=== PATIENT | male | born 1940 | race American Indian/Alaskan Native ===

== ENCOUNTER 2016-12-05 16:16 | Inpatient (IN) | payer MEDICARE, OTHER ==
[~2016-12-05] VITALS: Ht 174 cm; Wt 63.3 kg
[~2016-12-05 16:16] MED LIST: ERGO500017 PO; FINA5TAB4 PO; INSU100V5 SQ-INSULIN; METR500T PO; SEVE800T7 PO; TAMS-11 PO
[2016-12-05] MEDS ORDERED: SODIUM CHLORIDE 0.9% 1,000ML IVBOLUS ONE ×2 (17:00→20:30)
[2016-12-05 17:12] LABS: HEMATOCRIT 33.2 % (39.2-51.8); HEMOGLOBIN 10.8 g/dL (13.7-18.0); WHITE BLOOD COUNT 11.1 x10^3/uL (3.4-10)
[2016-12-05 17:23] LABS: ASPARTATE AMINO TRANSFERASE 60 U/L (15-37); BLOOD UREA NITROGEN 63 mg/dL (7-18)
[2016-12-05] MEDS ORDERED: ONDANSETRON 2MG/ML, 2ML ONE (17:29)
[2016-12-05] MEDS ORDERED: MORPHINE SULFATE 4 MG/ML, 1ML ONE (17:29)
[2016-12-05] MEDS ORDERED: ONDANSETRON 2MG/ML, 2ML IVPush ONE (17:30)
[2016-12-05] MEDS ORDERED: MORPHINE SULFATE 4 MG/ML, 1ML IVPush PRN (17:30)
[2016-12-05] MEDS ORDERED: ACETAMINOPHEN 500 MG TABLET ONE (20:15)
[2016-12-05] MEDS ORDERED: CEFTRIAXONE PMX 1GM/50ML 50 ML ONE (20:15)
[2016-12-05] MEDS ORDERED: ACETAMINOPHEN 500 MG TABLET PO ONE (20:30)
[2016-12-05] MEDS ORDERED: CEFTRIAXONE PMX 1GM/50ML 50 ML IVPB ONE (20:30)
[2016-12-05] MEDS ORDERED: ONDANSETRON ODT 4 MG PO PRN (21:30)
[2016-12-05] MEDS ORDERED: TEMAZEPAM 15 MG CAPSULE PO PRN (21:30)
[2016-12-05] MEDS ORDERED: hydrALAzine 20 MG/ML, 1ML IVPush PRN (21:30)
[2016-12-05 22:20] VITALS: BP 138/72
[2016-12-05 22:59] VITALS: BP 138/72
[2016-12-05] MEDS: HEPARIN 5,000 UNITS/ML, 1ML SQ SCH (23:30)
[2016-12-06] MEDS ORDERED: DEXTROSE 50%, 50ML SYRINGE IVPush PRN (01:00)
[2016-12-06] MEDS ORDERED: DEXTROSE 4 GM TAB.CHEW PO PRN (01:00)
[2016-12-06] MEDS ORDERED: GLUCAGON 1 MG IM PRN (01:00)
[2016-12-06 02:26] VITALS: BP 152/84
[2016-12-06 06:22] LABS: HEMATOCRIT 28.9 % (39.2-51.8); HEMOGLOBIN 9.5 g/dL (13.7-18.0); WHITE BLOOD COUNT 7.8 x10^3/uL (3.4-10)
[2016-12-06] MEDS: HEPARIN 5,000 UNITS/ML, 1ML SQ SCH ×3 (06:30→20:17)
[2016-12-06] MEDS: HYDROmorphone 2 MG/ML, 1ML IVPush PRN ×3 (06:40→20:17)
[2016-12-06 06:51] LABS: ASPARTATE AMINO TRANSFERASE 39 U/L (15-37); BLOOD UREA NITROGEN 72 mg/dL (7-18)
[2016-12-06] MEDS: INSULIN ASPART 100 UNITS/ML, PEN SQ-INSULIN SCH ×4 (07:00→20:16)
[2016-12-06 07:04] VITALS: BP 146/78
[2016-12-06] MEDS: SODIUM CHLORIDE FLUSH 10ML SYR IVF SCH ×2 (09:00→20:17)
[2016-12-06 09:37] VITALS: BP 119/79
[2016-12-06] MEDS: CEFTRIAXONE PMX 1GM/50ML 50 ML IV SCH ×2 (09:51→20:15)
[2016-12-06 13:47] VITALS: BP 117/77
[2016-12-06 20:00] VITALS: BP 123/82
[2016-12-06] MEDS: LACTOBACILLUS CHEW TABLET PO SCH (20:17)
[2016-12-07 01:56] VITALS: BP 150/87
[2016-12-07 05:07] LABS: HEMATOCRIT 27.6 % (39.2-51.8); HEMOGLOBIN 9.1 g/dL (13.7-18.0); WHITE BLOOD COUNT 6.8 x10^3/uL (3.4-10)
[2016-12-07 05:15] LABS: ASPARTATE AMINO TRANSFERASE 24 U/L (15-37); BLOOD UREA NITROGEN 88 mg/dL (7-18)
[2016-12-07] MEDS: HEPARIN 5,000 UNITS/ML, 1ML SQ SCH ×3 (05:24→21:53)
[2016-12-07] MEDS: DOCUSATE 100 MG CAPSULE PO PRN ×2 (05:24→21:53)
[2016-12-07 07:43] VITALS: BP 118/79
[2016-12-07] MEDS: LACTOBACILLUS CHEW TABLET PO SCH ×2 (07:54→21:53)
[2016-12-07] MEDS: INSULIN ASPART 100 UNITS/ML, PEN SQ-INSULIN SCH ×4 (07:54→21:53)
[2016-12-07] MEDS: SODIUM CHLORIDE FLUSH 10ML SYR IVF SCH ×2 (09:00→21:53)
[2016-12-07] MEDS ORDERED: ARANESP 60 MCG/ML **ESRD SQ SCH (10:30)
[2016-12-07] MEDS: CEFTRIAXONE PMX 1GM/50ML 50 ML IV SCH ×2 (12:15→21:54)
[2016-12-07 16:11] VITALS: BP 119/71
[2016-12-07 20:00] VITALS: BP 120/70
[2016-12-08 01:49] VITALS: BP 132/72
[2016-12-08] MEDS: HEPARIN 5,000 UNITS/ML, 1ML SQ SCH ×3 (05:06→22:20)
[2016-12-08 05:22] LABS: HEMATOCRIT 26.3 % (39.2-51.8); HEMOGLOBIN 8.9 g/dL (13.7-18.0); WHITE BLOOD COUNT 5.6 x10^3/uL (3.4-10)
[2016-12-08 05:38] LABS: BLOOD UREA NITROGEN 54 mg/dL (7-18)
[2016-12-08] MEDS: INSULIN ASPART 100 UNITS/ML, PEN SQ-INSULIN SCH ×4 (07:00→22:20)
[2016-12-08 08:45] VITALS: BP 115/67
[2016-12-08] MEDS: SODIUM CHLORIDE FLUSH 10ML SYR IVF SCH ×2 (09:00→22:18)
[2016-12-08 09:19] LABS: HEP B SURF. AB < 3.1 mIU/mL (0.0-10.0)
[2016-12-08] MEDS: LACTOBACILLUS CHEW TABLET PO SCH ×2 (09:29→22:19)
[2016-12-08] MEDS: CEFTRIAXONE PMX 1GM/50ML 50 ML IV SCH ×2 (09:29→22:21)
[2016-12-08] MEDS: HYDROmorphone 2 MG/ML, 1ML IVPush PRN (09:43)
[2016-12-08 15:07] VITALS: BP 125/70
[2016-12-08 20:20] VITALS: BP 125/68
[2016-12-08] MEDS: INSULIN DETEMIR 100 UNITS/ML, PEN SQ-INSULIN SCH (22:19)
[2016-12-09 03:59] VITALS: BP 146/78
[2016-12-09 04:17] VITALS: BP 146/78
[2016-12-09] MEDS: HEPARIN 5,000 UNITS/ML, 1ML SQ SCH ×3 (05:47→21:03)
[2016-12-09 06:07] LABS: WHITE BLOOD COUNT 5.7 x10^3/uL (3.4-10)
[2016-12-09 06:38] LABS: ASPARTATE AMINO TRANSFERASE 22 U/L (15-37); BLOOD UREA NITROGEN 69 mg/dL (7-18)
[2016-12-09] MEDS: INSULIN ASPART 100 UNITS/ML, PEN SQ-INSULIN SCH ×4 (07:00→21:03)
[2016-12-09 08:38] VITALS: BP 144/76
[2016-12-09] MEDS: SODIUM CHLORIDE FLUSH 10ML SYR IVF SCH ×2 (08:52→21:01)
[2016-12-09] MEDS: LACTOBACILLUS CHEW TABLET PO SCH ×2 (08:52→21:02)
[2016-12-09] MEDS: INSULIN DETEMIR 100 UNITS/ML, PEN SQ-INSULIN SCH ×2 (08:54→21:03)
[2016-12-09] MEDS: DOCUSATE 100 MG CAPSULE PO PRN (08:55)
[2016-12-09] MEDS: CEFTRIAXONE PMX 1GM/50ML 50 ML IV SCH ×2 (08:55→21:24)
[2016-12-09 14:46] VITALS: BP 137/72
[2016-12-09 20:39] VITALS: BP 154/82
[2016-12-10 01:59] VITALS: BP 168/87
[2016-12-10] MEDS: HEPARIN 5,000 UNITS/ML, 1ML SQ SCH ×3 (05:39→20:57)
[2016-12-10 05:55] LABS: HEMATOCRIT 25.7 % (39.2-51.8); HEMOGLOBIN 8.6 g/dL (13.7-18.0); WHITE BLOOD COUNT 6.2 x10^3/uL (3.4-10)
[2016-12-10 06:18] LABS: BLOOD UREA NITROGEN 81 mg/dL (7-18)
[2016-12-10] MEDS: INSULIN ASPART 100 UNITS/ML, PEN SQ-INSULIN SCH ×4 (07:00→21:05)
[2016-12-10 07:31] VITALS: BP 153/93
[2016-12-10] MEDS: SODIUM CHLORIDE FLUSH 10ML SYR IVF SCH ×2 (07:48→20:56)
[2016-12-10] MEDS: LACTOBACILLUS CHEW TABLET PO SCH ×2 (07:48→20:57)
[2016-12-10] MEDS: INSULIN DETEMIR 100 UNITS/ML, PEN SQ-INSULIN SCH ×2 (07:50→21:05)
[2016-12-10] MEDS: CEFTRIAXONE PMX 1GM/50ML 50 ML IV SCH ×2 (10:39→20:57)
[2016-12-10 15:15] VITALS: BP 123/74
[2016-12-10] MEDS: HYDROcodone/APAP 5/325 TABLET PO PRN (17:03)
[2016-12-10 20:50] VITALS: BP 111/75
[2016-12-11 02:21] VITALS: BP 142/80
[2016-12-11] MEDS: HYDROcodone/APAP 5/325 TABLET PO PRN ×3 (02:26→16:54)
[2016-12-11] MEDS: HEPARIN 5,000 UNITS/ML, 1ML SQ SCH ×2 (06:06→12:53)
[2016-12-11 06:15] LABS: HEMATOCRIT 30.8 % (39.2-51.8); WHITE BLOOD COUNT 8.4 x10^3/uL (3.4-10)
[2016-12-11 06:26] LABS: ASPARTATE AMINO TRANSFERASE 28 U/L (15-37); BLOOD UREA NITROGEN 48 mg/dL (7-18); FERRITIN 1898.8 ng/mL (26-388); TOTAL IRON BINDING CAPACITY 200 mcg/dL (250-450)
[2016-12-11 06:34] LABS: DIFF TOTAL CELLS COUNTED 100 CELL DIFF
[2016-12-11 06:37] LABS: ANISOCYTOSIS 1+; POLYCHROMASIA 1+; VERIFY COUNTS? YES
[2016-12-11 06:38] LABS: OVALOCYTES 1+
[2016-12-11] MEDS: INSULIN ASPART 100 UNITS/ML, PEN SQ-INSULIN SCH ×3 (07:00→16:00)
[2016-12-11 07:45] VITALS: BP 147/77
[2016-12-11] MEDS: SODIUM CHLORIDE FLUSH 10ML SYR IVF SCH (10:11)
[2016-12-11] MEDS: LACTOBACILLUS CHEW TABLET PO SCH (10:11)
[2016-12-11] MEDS: CEFTRIAXONE PMX 1GM/50ML 50 ML IV SCH (10:12)
[2016-12-11] MEDS: INSULIN DETEMIR 100 UNITS/ML, PEN SQ-INSULIN SCH (10:12)
[2016-12-11 12:42] VITALS: BP 137/80
[2016-12-11] MEDS ORDERED: INSU100I28 SQ-INSULIN (16:18)
[2016-12-11] MEDS ORDERED: ACID1TAB7 PO (16:18)
[2016-12-11] MEDS ORDERED: LEVO250T23 PO (16:18)
== END 2016-12-11 19:03 | disposition home or self-care (01) | DRG 871 ==
LOC: ED 18:20 → EDIP 20:43 → 4WST 22:40
PROVIDERS: ADMIT Hospitalist; ATTEND Internal Medicine
DX: A41.9 Sepsis, unspecified organism (principal); N18.6 End stage renal disease; E43 Unspecified severe protein-calorie malnutrition; R53.2 Functional quadriplegia; E11.21 Type 2 diabetes mellitus with diabetic nephropathy; I12.0 Hypertensive chronic kidney disease with stage 5 chronic kidney disease or end stage renal disease; N13.30 Unspecified hydronephrosis; N25.0 Renal osteodystrophy; E87.1 Hypo-osmolality and hyponatremia; E11.51 Type 2 diabetes mellitus with diabetic peripheral angiopathy without gangrene; E11.65 Type 2 diabetes mellitus with hyperglycemia; D63.1 Anemia in chronic kidney disease; E11.22 Type 2 diabetes mellitus with diabetic chronic kidney disease; B96.1 Klebsiella pneumoniae [K. pneumoniae] as the cause of diseases classified elsewhere; K76.89 Other specified diseases of liver; N27.1 Small kidney, bilateral; N30.91 Cystitis, unspecified with hematuria; N31.9 Neuromuscular dysfunction of bladder, unspecified; N32.0 Bladder-neck obstruction; N40.1 Benign prostatic hyperplasia with lower urinary tract symptoms; R33.8 Other retention of urine; W18.30XA Fall on same level, unspecified, initial encounter; Z82.49 Family history of ischemic heart disease and other diseases of the circulatory system; Z85.46 Personal history of malignant neoplasm of prostate; Z86.73 Personal history of transient ischemic attack (TIA), and cerebral infarction without residual deficits; Z99.2 Dependence on renal dialysis; Z92.3 Personal history of irradiation; Z68.20 Body mass index [BMI] 20.0-20.9, adult; R59.0 Localized enlarged lymph nodes; I73.9 Peripheral vascular disease, unspecified
CPT/HCPCS: 36415; 51702; 71010; 74177; 80048; 80053; 80069; 81001; 82728; 82962; 83540; 83550; 83605; 83690; 83735; 83970; 84100; 84550; 85025; 86704; 86706; 87040; 87077; 87086; 87186; 87340; 96365; 96375; J0696; J0882; J1170; J1644; J1815; J2405; J7030

== ENCOUNTER 2016-12-12 19:42 | Inpatient (IN) | payer MEDICARE, OTHER ==
[~2016-12-12] VITALS: Ht 175.3 cm; Wt 77.7 kg
[~2016-12-12 19:42] MED LIST changes: +ACID1TAB7 PO; +INSU100I28 SQ-INSULIN; +LEVO250T23 PO
[2016-12-12] MEDS ORDERED: SODIUM CHLORIDE 0.9% 1,000ML IVBOLUS ONE ×2 (20:00→22:00)
[2016-12-12 20:46] LABS: HEMATOCRIT 32.2 % (39.2-51.8); HEMOGLOBIN 10.4 g/dL (13.7-18.0); WHITE BLOOD COUNT 13.9 x10^3/uL (3.4-10)
[2016-12-12 20:52] LABS: ASPARTATE AMINO TRANSFERASE 176 U/L (15-37); BLOOD UREA NITROGEN 31 mg/dL (7-18)
[2016-12-12 21:01] LABS: ACETAMINOPHEN < 2 mcg/mL (10-30)
[2016-12-12 21:02] LABS: IS PT STATUS REG ER OR PRE ER? YES
[2016-12-12] MEDS ORDERED: PIPERACILLIN/TAZO/PMX 3.375GM 50 ML ONE (21:43)
[2016-12-12] MEDS ORDERED: VANCOMYCIN PER PHARMACY MC ONE (22:00)
[2016-12-12] MEDS ORDERED: PHARMACOKINETIC CONSULTATION MC ONE (22:00)
[2016-12-12] MEDS ORDERED: PIPERACILLIN/TAZO/PMX 3.375GM 50 ML IV ONE (22:00)
[2016-12-12 22:20] LABS: DAU SCREEN DISCLAIMER
[2016-12-12] MEDS ORDERED: VANCOMYCIN 1,400 MG in SODIUM CHLORIDE 0.9% 250 ML IV ONE (22:30)
[2016-12-12] MEDS: PIPERACILLIN/TAZO/PMX 3.375GM 50 ML IV SCH (23:22)
[2016-12-12] MEDS ORDERED: VANCOMYCIN PER PHARMACY MC PRN (23:30)
[2016-12-12] MEDS ORDERED: BISACODYL 10 MG SUPP PR PRN (23:30)
[2016-12-12] MEDS: SEVELAMER 800MG TABLET PO SCH (23:30)
[2016-12-12] MEDS: LACTOBACILLUS CHEW TABLET PO SCH (23:30)
[2016-12-12] MEDS: INSULIN ASPART 100 UNITS/ML, PEN SQ-INSULIN SCH (23:30)
[2016-12-12] MEDS ORDERED: POLYETHYLENE GLYCOL 17 GM PACKET PO PRN (23:30)
[2016-12-12] MEDS: INSULIN DETEMIR 100 UNITS/ML, PEN SQ-INSULIN SCH (23:30)
[2016-12-13] MEDS ORDERED: PHARMACOKINETIC MONITORING MC PRN (00:30)
[2016-12-13 05:20] VITALS: BP 153/56
[2016-12-13 05:53] LABS: BLOOD UREA NITROGEN 37 mg/dL (7-18)
[2016-12-13] MEDS: ACETAMINOPHEN 325 MG TABLET PO PRN ×3 (05:55→21:33)
[2016-12-13] MEDS: PIPERACILLIN/TAZO/PMX 3.375GM 50 ML IV SCH ×2 (05:55→11:53)
[2016-12-13] MEDS: HEPARIN 5,000 UNITS/ML, 1ML SQ SCH ×3 (05:55→21:17)
[2016-12-13 05:57] LABS: ASPARTATE AMINO TRANSFERASE 102 U/L (15-37)
[2016-12-13 06:28] LABS: HEMOGLOBIN 9.2 g/dL (13.7-18.0); WHITE BLOOD COUNT 15.3 x10^3/uL (3.4-10)
[2016-12-13 06:39] LABS: DIFF TOTAL CELLS COUNTED 100 CELL DIFF
[2016-12-13 07:03] LABS: ANISOCYTOSIS 1+; VERIFY COUNTS? YES
[2016-12-13 07:04] LABS: POIKILOCYTOSIS 1+; ROULEAUX 1+
[2016-12-13 07:22] VITALS: BP 130/72
[2016-12-13] MEDS: LACTOBACILLUS CHEW TABLET PO SCH ×2 (08:05→21:18)
[2016-12-13] MEDS: SENNA/DOCUSATE TABLET PO SCH (08:05)
[2016-12-13] MEDS: SEVELAMER 800MG TABLET PO SCH ×3 (08:05→17:00)
[2016-12-13] MEDS: TAMSULOSIN 0.4 MG CAP.ER.24H PO SCH (08:05)
[2016-12-13] MEDS: ERGOCALCIFEROL 50,000 UNIT CAPSULE PO SCH (09:04)
[2016-12-13] MEDS: INSULIN ASPART 100 UNITS/ML, PEN SQ-INSULIN SCH ×4 (09:04→20:24)
[2016-12-13] MEDS: INSULIN DETEMIR 100 UNITS/ML, PEN SQ-INSULIN SCH ×2 (11:54→21:18)
[2016-12-13 14:37] VITALS: BP 143/78
[2016-12-13] MEDS: ONDANSETRON 2MG/ML, 2ML IVPush PRN (15:34)
[2016-12-13] MEDS: PIPERACILLIN/TAZO/PMX 2.25GM 50 ML IVPB SCH (17:29)
[2016-12-13 19:40] VITALS: BP 110/66
[2016-12-14] MEDS: PIPERACILLIN/TAZO/PMX 2.25GM 50 ML IVPB SCH ×4 (00:16→22:47)
[2016-12-14 01:55] VITALS: BP 105/68
[2016-12-14 05:47] LABS: HEMATOCRIT 25.2 % (39.2-51.8); HEMOGLOBIN 8.3 g/dL (13.7-18.0); WHITE BLOOD COUNT 13.6 x10^3/uL (3.4-10)
[2016-12-14 05:55] LABS: BLOOD UREA NITROGEN 52 mg/dL (7-18)
[2016-12-14 06:00] LABS: DIFF TOTAL CELLS COUNTED 100 CELL DIFF
[2016-12-14 06:02] LABS: ANISOCYTOSIS 1+; VERIFY COUNTS? YES
[2016-12-14 06:03] LABS: MICROCYTOSIS 1+; OVALOCYTES 1+; POLYCHROMASIA 1+
[2016-12-14] MEDS: HEPARIN 5,000 UNITS/ML, 1ML SQ SCH ×2 (06:10→18:00)
[2016-12-14] MEDS: INSULIN ASPART 100 UNITS/ML, PEN SQ-INSULIN SCH ×4 (07:00→22:12)
[2016-12-14] MEDS: TAMSULOSIN 0.4 MG CAP.ER.24H PO SCH (08:30)
[2016-12-14] MEDS: LACTOBACILLUS CHEW TABLET PO SCH ×2 (08:30→22:47)
[2016-12-14] MEDS: SEVELAMER 800MG TABLET PO SCH ×3 (08:30→16:26)
[2016-12-14] MEDS: ACETAMINOPHEN 325 MG TABLET PO PRN ×3 (08:31→23:00)
[2016-12-14] MEDS: SENNA/DOCUSATE TABLET PO SCH (08:36)
[2016-12-14 08:47] VITALS: BP 129/68
[2016-12-14] MEDS ORDERED: PHARMACY MAY ADJ FOR RENAL FX MC PRN (09:00)
[2016-12-14] MEDS: INSULIN DETEMIR 100 UNITS/ML, PEN SQ-INSULIN SCH ×2 (12:18→22:48)
[2016-12-14 14:43] VITALS: BP 126/78
[2016-12-14] MEDS ORDERED: VANCOMYCIN 1,400 MG in SODIUM CHLORIDE 0.9% 250 ML IV ONE (16:00)
[2016-12-15 00:26] VITALS: BP 105/66
[2016-12-15 05:06] LABS: HEMATOCRIT 27.7 % (39.2-51.8); HEMOGLOBIN 9.1 g/dL (13.7-18.0); WHITE BLOOD COUNT 11.4 x10^3/uL (3.4-10)
[2016-12-15 05:13] LABS: BLOOD UREA NITROGEN 23 mg/dL (7-18)
[2016-12-15 05:16] LABS: ASPARTATE AMINO TRANSFERASE 30 U/L (15-37)
[2016-12-15] MEDS: PIPERACILLIN/TAZO/PMX 2.25GM 50 ML IVPB SCH ×3 (05:44→17:55)
[2016-12-15] MEDS: HEPARIN 5,000 UNITS/ML, 1ML SQ SCH ×2 (05:44→17:56)
[2016-12-15] MEDS: INSULIN ASPART 100 UNITS/ML, PEN SQ-INSULIN SCH ×4 (07:00→20:31)
[2016-12-15 07:18] VITALS: BP 98/54
[2016-12-15] MEDS: TAMSULOSIN 0.4 MG CAP.ER.24H PO SCH (09:00)
[2016-12-15] MEDS: SENNA/DOCUSATE TABLET PO SCH (09:00)
[2016-12-15] MEDS: LACTOBACILLUS CHEW TABLET PO SCH ×2 (10:09→20:30)
[2016-12-15] MEDS: SEVELAMER 800MG TABLET PO SCH ×3 (10:09→17:55)
[2016-12-15] MEDS: INSULIN DETEMIR 100 UNITS/ML, PEN SQ-INSULIN SCH (12:16)
[2016-12-15] MEDS: ACETAMINOPHEN 325 MG TABLET PO PRN ×2 (14:52→20:35)
[2016-12-15] MEDS: ONDANSETRON 2MG/ML, 2ML IVPush PRN (14:52)
[2016-12-15 14:54] VITALS: BP 101/63
[2016-12-15] MEDS ORDERED: BISACODYL 10 MG SUPP PR PRN (16:30)
[2016-12-15] MEDS ORDERED: POLYETHYLENE GLYCOL 17 GM PACKET PO PRN (16:30)
[2016-12-15] MEDS ORDERED: ONDANSETRON 2MG/ML, 2ML IVPush PRN (16:30)
[2016-12-15 19:55] VITALS: BP 109/75
[2016-12-16] MEDS: PIPERACILLIN/TAZO/PMX 2.25GM 50 ML IVPB SCH ×2 (00:22→06:13)
[2016-12-16] MEDS: INSULIN DETEMIR 100 UNITS/ML, PEN SQ-INSULIN SCH ×3 (00:34→22:59)
[2016-12-16 00:37] VITALS: BP 109/54
[2016-12-16 04:29] LABS: HEMATOCRIT 27.1 % (39.2-51.8); HEMOGLOBIN 8.6 g/dL (13.7-18.0); WHITE BLOOD COUNT 9.8 x10^3/uL (3.4-10)
[2016-12-16 04:40] LABS: BLOOD UREA NITROGEN 37 mg/dL (7-18)
[2016-12-16 04:41] LABS: ASPARTATE AMINO TRANSFERASE 20 U/L (15-37)
[2016-12-16] MEDS: HEPARIN 5,000 UNITS/ML, 1ML SQ SCH ×2 (06:15→17:19)
[2016-12-16] MEDS: INSULIN ASPART 100 UNITS/ML, PEN SQ-INSULIN SCH ×4 (07:00→21:00)
[2016-12-16 07:46] VITALS: BP 142/75
[2016-12-16 08:55] VITALS: BP 118/78
[2016-12-16] MEDS: TAMSULOSIN 0.4 MG CAP.ER.24H PO SCH (09:00)
[2016-12-16] MEDS: SENNA/DOCUSATE TABLET PO SCH (09:00)
[2016-12-16] MEDS: LACTOBACILLUS CHEW TABLET PO SCH ×2 (09:15→22:59)
[2016-12-16] MEDS: SEVELAMER 800MG TABLET PO SCH ×3 (09:15→17:19)
[2016-12-16] MEDS: ACETAMINOPHEN 325 MG TABLET PO PRN ×2 (09:21→17:19)
[2016-12-16] MEDS: CEFTRIAXONE PMX 1GM/50ML 50 ML IV SCH (13:14)
[2016-12-16 14:35] VITALS: BP 113/69
[2016-12-16 18:35] VITALS: BP 125/73
[2016-12-16] MEDS ORDERED: ALUMINUM/MAG/SIMETHICONE 30 ML UDC PO PRN ×2 (21:00)
[2016-12-16] MEDS: DOXYCYCLINE 100MG TABLET PO SCH (22:59)
[2016-12-17 02:09] VITALS: BP 136/78
[2016-12-17 04:55] LABS: HEMATOCRIT 26.2 % (39.2-51.8); HEMOGLOBIN 8.5 g/dL (13.7-18.0)
[2016-12-17 05:05] LABS: ASPARTATE AMINO TRANSFERASE 17 U/L (15-37); BLOOD UREA NITROGEN 46 mg/dL (7-18)
[2016-12-17] MEDS: HEPARIN 5,000 UNITS/ML, 1ML SQ SCH ×2 (05:29→17:33)
[2016-12-17] MEDS: INSULIN ASPART 100 UNITS/ML, PEN SQ-INSULIN SCH ×4 (07:00→21:58)
[2016-12-17 07:17] VITALS: BP 136/75
[2016-12-17 07:51] VITALS: BP 131/79
[2016-12-17] MEDS: SENNA/DOCUSATE TABLET PO SCH (09:00)
[2016-12-17] MEDS: ACETAMINOPHEN 325 MG TABLET PO PRN ×2 (09:11→21:57)
[2016-12-17] MEDS: DOXYCYCLINE 100MG TABLET PO SCH ×2 (09:12→21:57)
[2016-12-17] MEDS: TAMSULOSIN 0.4 MG CAP.ER.24H PO SCH (09:13)
[2016-12-17] MEDS: SEVELAMER 800MG TABLET PO SCH ×3 (09:14→21:57)
[2016-12-17] MEDS: LACTOBACILLUS CHEW TABLET PO SCH ×2 (09:14→21:57)
[2016-12-17] MEDS: CEFTRIAXONE PMX 1GM/50ML 50 ML IV SCH (12:15)
[2016-12-17] MEDS: INSULIN DETEMIR 100 UNITS/ML, PEN SQ-INSULIN SCH (12:15)
[2016-12-17 14:07] VITALS: BP 159/80
[2016-12-17 19:45] VITALS: BP 102/60
[2016-12-18] MEDS: INSULIN DETEMIR 100 UNITS/ML, PEN SQ-INSULIN SCH ×2 (00:12→12:53)
[2016-12-18 02:55] VITALS: BP 123/75
[2016-12-18] MEDS: HEPARIN 5,000 UNITS/ML, 1ML SQ SCH ×2 (05:08→17:19)
[2016-12-18 05:16] LABS: HEMOGLOBIN 9.4 g/dL (13.7-18.0); WHITE BLOOD COUNT 9.2 x10^3/uL (3.4-10)
[2016-12-18 05:29] LABS: BLOOD UREA NITROGEN 24 mg/dL (7-18)
[2016-12-18] MEDS: INSULIN ASPART 100 UNITS/ML, PEN SQ-INSULIN SCH ×4 (07:00→20:35)
[2016-12-18] MEDS: SEVELAMER 800MG TABLET PO SCH ×3 (08:46→17:19)
[2016-12-18] MEDS: SENNA/DOCUSATE TABLET PO SCH (08:47)
[2016-12-18] MEDS: ACETAMINOPHEN 325 MG TABLET PO PRN ×2 (08:47→18:21)
[2016-12-18] MEDS: DOXYCYCLINE 100MG TABLET PO SCH ×2 (08:47→20:50)
[2016-12-18] MEDS: TAMSULOSIN 0.4 MG CAP.ER.24H PO SCH (08:47)
[2016-12-18] MEDS: LACTOBACILLUS CHEW TABLET PO SCH ×2 (08:47→20:50)
[2016-12-18 08:54] VITALS: BP 109/75
[2016-12-18] MEDS: CEFTRIAXONE PMX 1GM/50ML 50 ML IV SCH (12:52)
[2016-12-18 13:18] VITALS: BP 95/62
[2016-12-18 19:51] VITALS: BP 145/75
[2016-12-19] MEDS: ACETAMINOPHEN 325 MG TABLET PO PRN ×4 (01:06→20:23)
[2016-12-19 01:09] VITALS: BP 130/55
[2016-12-19 05:04] LABS: HEMATOCRIT 27.3 % (39.2-51.8); WHITE BLOOD COUNT 10.8 x10^3/uL (3.4-10)
[2016-12-19 05:17] LABS: ASPARTATE AMINO TRANSFERASE 24 U/L (15-37); BLOOD UREA NITROGEN 48 mg/dL (7-18)
[2016-12-19] MEDS: HEPARIN 5,000 UNITS/ML, 1ML SQ SCH ×2 (05:48→17:44)
[2016-12-19] MEDS: INSULIN ASPART 100 UNITS/ML, PEN SQ-INSULIN SCH ×4 (07:00→19:53)
[2016-12-19 08:02] VITALS: BP 124/70
[2016-12-19] MEDS: LACTOBACILLUS CHEW TABLET PO SCH ×2 (08:44→20:22)
[2016-12-19] MEDS: TAMSULOSIN 0.4 MG CAP.ER.24H PO SCH (08:44)
[2016-12-19] MEDS: DOXYCYCLINE 100MG TABLET PO SCH ×2 (08:44→20:22)
[2016-12-19] MEDS: SEVELAMER 800MG TABLET PO SCH ×4 (08:45→17:44)
[2016-12-19] MEDS: INSULIN DETEMIR 100 UNITS/ML, PEN SQ-INSULIN SCH ×2 (08:46→19:54)
[2016-12-19] MEDS: CEFTRIAXONE PMX 1GM/50ML 50 ML IV SCH (15:13)
[2016-12-19 15:15] VITALS: BP 112/64
[2016-12-19] MEDS: GUAIFENESIN ER 600 MG TABLET PO SCH ×2 (17:44→20:22)
[2016-12-20] MEDS: ACETAMINOPHEN 325 MG TABLET PO PRN ×3 (01:34→21:41)
[2016-12-20 01:36] VITALS: BP 122/74
[2016-12-20 05:16] LABS: HEMATOCRIT 27.3 % (39.2-51.8); HEMOGLOBIN 8.9 g/dL (13.7-18.0); WHITE BLOOD COUNT 11.6 x10^3/uL (3.4-10)
[2016-12-20 05:23] LABS: BLOOD UREA NITROGEN 39 mg/dL (7-18)
[2016-12-20] MEDS: HEPARIN 5,000 UNITS/ML, 1ML SQ SCH ×2 (06:18→17:20)
[2016-12-20] MEDS: INSULIN ASPART 100 UNITS/ML, PEN SQ-INSULIN SCH ×4 (07:00→21:00)
[2016-12-20 07:19] VITALS: BP 129/77
[2016-12-20] MEDS: SEVELAMER 800MG TABLET PO SCH ×3 (08:16→17:19)
[2016-12-20] MEDS ORDERED: HYDROcodone/APAP 5/325 TABLET ONE (09:31)
[2016-12-20] MEDS: GUAIFENESIN ER 600 MG TABLET PO SCH ×3 (09:34→21:40)
[2016-12-20] MEDS: ERGOCALCIFEROL 50,000 UNIT CAPSULE PO SCH (09:34)
[2016-12-20] MEDS: LACTOBACILLUS CHEW TABLET PO SCH ×2 (09:34→21:40)
[2016-12-20] MEDS: DOXYCYCLINE 100MG TABLET PO SCH ×2 (09:34→21:40)
[2016-12-20] MEDS: TAMSULOSIN 0.4 MG CAP.ER.24H PO SCH (09:34)
[2016-12-20] MEDS: INSULIN DETEMIR 100 UNITS/ML, PEN SQ-INSULIN SCH ×2 (09:34→21:41)
[2016-12-20] MEDS: HYDROcodone/APAP 5/325 TABLET PO PRN ×2 (09:35→17:35)
[2016-12-20] MEDS: CEFTRIAXONE PMX 1GM/50ML 50 ML IV SCH (12:37)
[2016-12-20 13:10] VITALS: BP 134/73
[2016-12-20 20:39] VITALS: BP 125/75
[2016-12-21 03:35] VITALS: BP 134/75
[2016-12-21] MEDS: HYDROcodone/APAP 5/325 TABLET PO PRN ×4 (03:35→22:04)
[2016-12-21 05:26] LABS: HEMATOCRIT 25.3 % (39.2-51.8); HEMOGLOBIN 8.4 g/dL (13.7-18.0); WHITE BLOOD COUNT 12.1 x10^3/uL (3.4-10)
[2016-12-21] MEDS: HEPARIN 5,000 UNITS/ML, 1ML SQ SCH ×2 (05:30→18:05)
[2016-12-21 05:56] LABS: BLOOD UREA NITROGEN 61 mg/dL (7-18)
[2016-12-21] MEDS: INSULIN ASPART 100 UNITS/ML, PEN SQ-INSULIN SCH ×4 (07:00→21:00)
[2016-12-21 07:14] VITALS: BP 140/77
[2016-12-21] MEDS ORDERED: GUAI600T31 PO (07:50)
[2016-12-21] MEDS: LACTOBACILLUS CHEW TABLET PO SCH ×2 (08:16→20:23)
[2016-12-21] MEDS: TAMSULOSIN 0.4 MG CAP.ER.24H PO SCH (08:16)
[2016-12-21] MEDS: GUAIFENESIN ER 600 MG TABLET PO SCH ×3 (08:16→20:23)
[2016-12-21] MEDS: SEVELAMER 800MG TABLET PO SCH ×3 (08:17→18:06)
[2016-12-21] MEDS: INSULIN DETEMIR 100 UNITS/ML, PEN SQ-INSULIN SCH ×2 (08:17→20:23)
[2016-12-21] MEDS: ACETAMINOPHEN 325 MG TABLET PO PRN ×2 (12:15→20:24)
[2016-12-21 13:23] VITALS: BP 132/76
[2016-12-21 19:01] VITALS: BP 156/80
[2016-12-22 02:22] VITALS: BP 155/80
[2016-12-22] MEDS: HYDROcodone/APAP 5/325 TABLET PO PRN ×3 (04:38→19:46)
[2016-12-22 05:28] LABS: HEMATOCRIT 25.6 % (39.2-51.8); HEMOGLOBIN 8.5 g/dL (13.7-18.0); WHITE BLOOD COUNT 9.7 x10^3/uL (3.4-10)
[2016-12-22 05:42] LABS: ASPARTATE AMINO TRANSFERASE 21 U/L (15-37); BLOOD UREA NITROGEN 88 mg/dL (7-18)
[2016-12-22] MEDS: HEPARIN 5,000 UNITS/ML, 1ML SQ SCH ×2 (05:56→17:04)
[2016-12-22 06:51] VITALS: BP 165/86
[2016-12-22] MEDS: INSULIN ASPART 100 UNITS/ML, PEN SQ-INSULIN SCH ×4 (07:00→19:56)
[2016-12-22] MEDS: LACTOBACILLUS CHEW TABLET PO SCH ×2 (08:59→19:46)
[2016-12-22] MEDS: SEVELAMER 800MG TABLET PO SCH ×3 (08:59→17:04)
[2016-12-22] MEDS: TAMSULOSIN 0.4 MG CAP.ER.24H PO SCH (09:00)
[2016-12-22] MEDS: GUAIFENESIN ER 600 MG TABLET PO SCH ×3 (09:00→19:46)
[2016-12-22] MEDS: INSULIN DETEMIR 100 UNITS/ML, PEN SQ-INSULIN SCH ×2 (09:01→19:57)
[2016-12-22 13:26] VITALS: BP 150/76
[2016-12-22] MEDS ORDERED: ONDANSETRON 2MG/ML, 2ML IVPush PRN (20:00)
[2016-12-22] MEDS ORDERED: PHARMACY MAY ADJ FOR RENAL FX MC PRN (20:00)
[2016-12-22] MEDS ORDERED: BISACODYL 10 MG SUPP PR PRN (20:00)
[2016-12-22] MEDS ORDERED: POLYETHYLENE GLYCOL 17 GM PACKET PO PRN (20:00)
[2016-12-22 20:07] VITALS: BP 156/82
[2016-12-23] MEDS: ACETAMINOPHEN 325 MG TABLET PO PRN ×3 (00:46→19:25)
[2016-12-23 01:25] VITALS: BP 133/73
[2016-12-23] MEDS: HYDROcodone/APAP 5/325 TABLET PO PRN ×4 (02:27→22:42)
[2016-12-23 05:34] LABS: BLOOD UREA NITROGEN 96 mg/dL (7-18)
[2016-12-23] MEDS: HEPARIN 5,000 UNITS/ML, 1ML SQ SCH ×2 (06:09→19:25)
[2016-12-23] MEDS: INSULIN ASPART 100 UNITS/ML, PEN SQ-INSULIN SCH ×4 (07:00→21:00)
[2016-12-23 08:08] VITALS: BP 160/81
[2016-12-23] MEDS: SEVELAMER 800MG TABLET PO SCH ×3 (08:23→16:51)
[2016-12-23] MEDS: LACTOBACILLUS CHEW TABLET PO SCH ×2 (08:23→22:42)
[2016-12-23] MEDS: GUAIFENESIN ER 600 MG TABLET PO SCH ×3 (08:23→22:42)
[2016-12-23] MEDS: INSULIN DETEMIR 100 UNITS/ML, PEN SQ-INSULIN SCH ×2 (08:24→22:43)
[2016-12-23] MEDS: TAMSULOSIN 0.4 MG CAP.ER.24H PO SCH (08:24)
[2016-12-23 08:57] LABS: HEMATOCRIT 28.2 % (39.2-51.8); HEMOGLOBIN 9.2 g/dL (13.7-18.0); WHITE BLOOD COUNT 10.9 x10^3/uL (3.4-10)
[2016-12-23 09:09] LABS: BLOOD UREA NITROGEN 103 mg/dL (7-18)
[2016-12-23 09:38] LABS: DIFF TOTAL CELLS COUNTED 100 CELL DIFF
[2016-12-23 09:40] LABS: ANISOCYTOSIS 1+; VERIFY COUNTS? YES
[2016-12-23 12:57] VITALS: BP 164/80
[2016-12-23 18:48] VITALS: BP 165/82
[2016-12-24 02:25] VITALS: BP 181/90
[2016-12-24] MEDS: ACETAMINOPHEN 325 MG TABLET PO PRN (02:35)
[2016-12-24 05:18] LABS: HEMATOCRIT 25.7 % (39.2-51.8); HEMOGLOBIN 8.4 g/dL (13.7-18.0); WHITE BLOOD COUNT 9.4 x10^3/uL (3.4-10)
[2016-12-24] MEDS: HEPARIN 5,000 UNITS/ML, 1ML SQ SCH ×2 (05:25→17:27)
[2016-12-24 05:29] LABS: BLOOD UREA NITROGEN 111 mg/dL (7-18)
[2016-12-24 07:00] VITALS: BP 132/73
[2016-12-24] MEDS: INSULIN ASPART 100 UNITS/ML, PEN SQ-INSULIN SCH ×4 (07:00→21:00)
[2016-12-24] MEDS: SEVELAMER 800MG TABLET PO SCH ×3 (08:00→17:27)
[2016-12-24] MEDS: INSULIN DETEMIR 100 UNITS/ML, PEN SQ-INSULIN SCH ×2 (09:00→21:00)
[2016-12-24] MEDS: GUAIFENESIN ER 600 MG TABLET PO SCH ×3 (11:37→20:27)
[2016-12-24] MEDS: TAMSULOSIN 0.4 MG CAP.ER.24H PO SCH (11:37)
[2016-12-24] MEDS: LACTOBACILLUS CHEW TABLET PO SCH ×2 (11:38→20:27)
[2016-12-24] MEDS: HYDROcodone/APAP 5/325 TABLET PO PRN ×2 (12:19→20:27)
[2016-12-24 14:11] VITALS: BP 136/78
[2016-12-24 18:57] VITALS: BP 118/66
[2016-12-25 04:53] VITALS: BP 136/76
[2016-12-25 05:29] LABS: BLOOD UREA NITROGEN 55 mg/dL (7-18)
[2016-12-25 05:32] LABS: HEMATOCRIT 27.8 % (39.2-51.8); HEMOGLOBIN 9.2 g/dL (13.7-18.0); WHITE BLOOD COUNT 8.3 x10^3/uL (3.4-10)
[2016-12-25] MEDS: HEPARIN 5,000 UNITS/ML, 1ML SQ SCH ×2 (05:41→17:32)
[2016-12-25] MEDS: INSULIN ASPART 100 UNITS/ML, PEN SQ-INSULIN SCH ×4 (07:00→20:50)
[2016-12-25 08:12] VITALS: BP 111/69
[2016-12-25] MEDS: SEVELAMER 800MG TABLET PO SCH ×3 (09:16→17:31)
[2016-12-25] MEDS: LACTOBACILLUS CHEW TABLET PO SCH ×2 (09:16→20:47)
[2016-12-25] MEDS: GUAIFENESIN ER 600 MG TABLET PO SCH ×3 (09:16→20:47)
[2016-12-25] MEDS: INSULIN DETEMIR 100 UNITS/ML, PEN SQ-INSULIN SCH ×2 (09:16→21:31)
[2016-12-25] MEDS: TAMSULOSIN 0.4 MG CAP.ER.24H PO SCH (09:16)
[2016-12-25] MEDS: HYDROcodone/APAP 5/325 TABLET PO PRN ×2 (12:09→20:46)
[2016-12-25 12:28] LABS: BLOOD UREA NITROGEN 61 mg/dL (7-18)
[2016-12-25 12:52] VITALS: BP 130/72
[2016-12-25 18:30] VITALS: BP 123/70
[2016-12-26] MEDS: HYDROcodone/APAP 5/325 TABLET PO PRN ×3 (00:28→14:18)
[2016-12-26 00:32] VITALS: BP 146/77
[2016-12-26 05:38] LABS: HEMATOCRIT 26.6 % (39.2-51.8); HEMOGLOBIN 8.8 g/dL (13.7-18.0); WHITE BLOOD COUNT 7.6 x10^3/uL (3.4-10)
[2016-12-26 05:52] LABS: BLOOD UREA NITROGEN 74 mg/dL (7-18)
[2016-12-26] MEDS: HEPARIN 5,000 UNITS/ML, 1ML SQ SCH (06:01)
[2016-12-26] MEDS: INSULIN ASPART 100 UNITS/ML, PEN SQ-INSULIN SCH ×2 (07:00→11:00)
[2016-12-26] MEDS: INSULIN DETEMIR 100 UNITS/ML, PEN SQ-INSULIN SCH (09:00)
[2016-12-26] MEDS: SEVELAMER 800MG TABLET PO SCH ×2 (09:01→12:54)
[2016-12-26] MEDS: GUAIFENESIN ER 600 MG TABLET PO SCH (09:01)
[2016-12-26] MEDS: LACTOBACILLUS CHEW TABLET PO SCH (09:01)
[2016-12-26] MEDS: TAMSULOSIN 0.4 MG CAP.ER.24H PO SCH (09:01)
[2016-12-26 11:15] VITALS: BP 100/55
== END 2016-12-26 19:32 | DRG 871 ==
LOC: ED 22:14 → EDIP 22:51 → 4WST 12-13 00:06
PROVIDERS: ADMIT Internal Medicine; ATTEND Internal Medicine
PROC: 5A1D70Z Performance of Urinary Filtration, Intermittent, Less than 6 Hours Per Day (ICD-10-PCS; principal; 2016-12-14)
PROC: 5A1D70Z Performance of Urinary Filtration, Intermittent, Less than 6 Hours Per Day (ICD-10-PCS; 2016-12-17)
PROC: 5A1D70Z Performance of Urinary Filtration, Intermittent, Less than 6 Hours Per Day (ICD-10-PCS; 2016-12-19)
PROC: 5A1D70Z Performance of Urinary Filtration, Intermittent, Less than 6 Hours Per Day (ICD-10-PCS; 2016-12-24)
PROC: 5A1D70Z Performance of Urinary Filtration, Intermittent, Less than 6 Hours Per Day (ICD-10-PCS; 2016-12-26)
DX: A41.9 Sepsis, unspecified organism (principal); G93.40 Encephalopathy, unspecified; J15.9 Unspecified bacterial pneumonia; E44.0 Moderate protein-calorie malnutrition; E11.21 Type 2 diabetes mellitus with diabetic nephropathy; E87.5 Hyperkalemia; E11.51 Type 2 diabetes mellitus with diabetic peripheral angiopathy without gangrene; C61 Malignant neoplasm of prostate; D63.1 Anemia in chronic kidney disease; N18.6 End stage renal disease; I12.0 Hypertensive chronic kidney disease with stage 5 chronic kidney disease or end stage renal disease; E87.1 Hypo-osmolality and hyponatremia; J98.11 Atelectasis; N13.9 Obstructive and reflux uropathy, unspecified; E11.22 Type 2 diabetes mellitus with diabetic chronic kidney disease; I73.9 Peripheral vascular disease, unspecified; Z60.2 Problems related to living alone; R65.20 Severe sepsis without septic shock; G89.29 Other chronic pain; M19.012 Primary osteoarthritis, left shoulder; R31.0 Gross hematuria; Y95 Nosocomial condition; Z82.49 Family history of ischemic heart disease and other diseases of the circulatory system; Z79.4 Long term (current) use of insulin; Z68.25 Body mass index [BMI] 25.0-25.9, adult; Z85.46 Personal history of malignant neoplasm of prostate; Z99.2 Dependence on renal dialysis; Z90.89 Acquired absence of other organs; Z98.49 Cataract extraction status, unspecified eye; Z95.828 Presence of other vascular implants and grafts
CPT/HCPCS: 36415; 51702; 70450; 71010; 71020; 80048; 80053; 80069; 80202; 80307; 80329; 81001; 82040; 82140; 82962; 83036; 83605; 83735; 84100; 84484; 84550; 85025; 85610; 85730; 87040; 87324; 93005; 94667; 96361; 96365; J0696; J1644; J1815; J2405; J2543; J3370; G0479; G0480; J7030; J7050